=== PATIENT | male | born 1965 | race Hispanic/Latino ===

== ENCOUNTER 2022-05-17 10:18 | Emergency (ER) | payer SELFPAY ==
[2022-05-17] MEDS ORDERED: Lidocaine 1% (PF) 30 ML VIAL ONE (11:18)
[2022-05-17] MEDS ORDERED: Lidocaine 1% w/Epinephrine 1:100K 20 ML VIAL ONE (11:18)
[2022-05-17] MEDS ORDERED: Bacitracin 1 PK ONE (12:11)
[2022-05-17] MEDS ORDERED: Amoxicillin/Potassium Clav 875 MG TAB ONE (12:11)
== END 2022-05-17 12:20 | disposition home or self-care (01) ==
LOC: MADERS 10:18
DX: S62.635B Displaced fracture of distal phalanx of left ring finger, initial encounter for open fracture (principal); W22.8XXA Striking against or struck by other objects, initial encounter; Y99.0 Civilian activity done for income or pay
CPT/HCPCS: 11760; J2001

== ENCOUNTER 2023-07-06 11:03 | Emergency (ER) | payer SELFPAY ==
[2023-07-06] MEDS ORDERED: Fluorescein Opthalmic Strip ONE (11:30)
[2023-07-06] MEDS ORDERED: Tetracaine 0.5% PF 4 ML BOT ONE (11:30)
== END 2023-07-06 11:46 | disposition home or self-care (01) ==
LOC: MADERS 11:03
DX: H44.002 Unspecified purulent endophthalmitis, left eye (principal)
CPT/HCPCS: 99283